=== PATIENT | male | born 1965 | race Caucasian/White ===

== ENCOUNTER 2016-12-05 20:55 | Emergency (ER) | payer OTHER ==
[2016-12-05 21:08] VITALS: TEMP 97.6
[2016-12-05] MEDS ORDERED: METOPROLOL TARTRATE 25 MG TAB PO ONE (21:12)
[2016-12-05] MEDS ORDERED: METOPROLOL TARTRATE 25 MG TAB ONE (21:15)
[2016-12-05] MEDS ORDERED: SODIUM CHLORIDE 0.9% FLUSH 10 ML SOL IV PRN (21:18)
[2016-12-05] MEDS ORDERED: ADENOSINE 3 MG/ML SOL IV ONE (21:20)
[2016-12-05 21:21] LABS: BASOPHILS % (AUTO) 1 % (0-3); EOSINOPHILS % (AUTO) 1 % (0-9); HEMATOCRIT 48 % (39-53); MEAN CORPUSCULAR VOLUME 94 fL (80-100); MONOCYTES % (AUTO) 5.7 % (0-12); NEUTROPHILS % (AUTO) 61.2 % (37-80)
[2016-12-05 21:45] LABS: CALCIUM 9.4 mg/dl (8.5-10.1); GLOM FILT RATE 56 mL/min (>60); POTASSIUM 4.3 mMol/L (3.5-5.1); SODIUM 141 mMol/L (136-145)
[2016-12-05 22:17] VITALS: BP 123/83; PULSE 92; RESP 17; O2SAT 93
== END 2016-12-05 22:13 | disposition home or self-care (01) | DRG 310 ==
LOC: ED 20:55
DX: R00.2 Palpitations (principal)
CPT/HCPCS: 36415; 80048; 84484; 85025; 93005; 99284